=== PATIENT | male | born 1965 | race Caucasian/White ===

== ENCOUNTER 2016-12-13 08:41 | Emergency (ER) | payer SELFPAY ==
--- NOTE | ~2016-12-13 | CR126 ---
[facility] A Service of [facility] RADIOLOGY TEXT RESULTS PATIENT: CONNIE GRAVES LOCATION: SED : 63 UNIT #: [id number] AGE: [address]: Jesus Andrade MD SEX: M ORDER DR: [id number] [place] [id number] E MR#: [id number] Acc #: [id number] NAME: CONNIE GRAVES : 1965 SEX: M STUDY DATE/TIME: 12/13/2016 9:33 UNIT: SED ROOM: STUDY DESCRIPTION: CR Foot Complete Min 3 View Lt Attending Physician: Jesus Andrade M.D. Ordering Physician: Jesus Andrade M.D. Primary Care Physician: Cynthia Herrera M.D. MEDICAL IMAGING REPORT This report is preliminary unless electronic signature is present. EXAM Left foot 12/13/2016 HISTORY 51-year-old male with left foot pain status post fall last night. COMPARISON None. FINDINGS 3 views of the left foot demonstrate no acute fracture or dislocation. Joint spaces are within normal limits. Soft tissues are unremarkable. IMPRESSION Unremarkable left foot. Dictated by... James Vazquez M.D. THIS IS AN ELECTRONICALLY VERIFIED REPORT James Vazquez M.D. at 12/14/2016 6:21 AM SILVA/eris TD: 12/13/2016 10:10 JOB #: [id number] MEDICAL IMAGING REPORT Page 1 of 1
[~2016-12-13 08:41] MED LIST: AMBIEN10 MG PO; ATENOLOL PO; BACITRACIN30 GM TOP; BACTRIM DS TABL1 TA1 PO; CIPRO PO; EFFEXOR PO; ERYC250 MG PO; JANUMET; KLONOPIN0.5 M1 PO; LANTUS100 U/ML; LISINOPRIL PO; LISINOPRIL-HCTZ1 T19 PO; MOBIC PO; MOTRIN600 M1 PO; NEURONTIN PO; SUBOXONE 8 MG-1 EAC1 PO; VELTIN GEL30 GM TOP; VICODIN 5/500 T1 TAB PO; ZOCOR10 MG PO
[2016-12-13] MEDS ORDERED: METFORMIN (08:49)
[2016-12-13] MEDS ORDERED: FLOMAX0.4 M1 (08:49)
== END 2016-12-13 10:36 | disposition home or self-care (01) ==
LOC: SED 08:41
DX: S93.602A Unspecified sprain of left foot, initial encounter (principal); S90.32XA Contusion of left foot, initial encounter; F17.210 Nicotine dependence, cigarettes, uncomplicated; E78.5 Hyperlipidemia, unspecified; F41.0 Panic disorder [episodic paroxysmal anxiety]; Z90.49 Acquired absence of other specified parts of digestive tract; Z86.73 Personal history of transient ischemic attack (TIA), and cerebral infarction without residual deficits; Z79.899 Other long term (current) drug therapy; Z88.0 Allergy status to penicillin; W01.0XXA Fall on same level from slipping, tripping and stumbling without subsequent striking against object, initial encounter; Y92.009 Unspecified place in unspecified non-institutional (private) residence as the place of occurrence of the external cause
CPT/HCPCS: 73630; 99283

== ENCOUNTER 2017-01-21 12:51 | Emergency (ER) | payer SELFPAY ==
[~2017-01-21 12:51] MED LIST changes: +FLOMAX0.4 M1; +METFORMIN
[2017-01-21 14:13] LABS: URINE SOURCE CLEAN CATCH
[2017-01-21 14:32] LABS: URINE APPEARANCE CLEAR; URINE BILIRUBIN NEG (NEG); URINE BLOOD TRACE-INTACT (NEG); URINE COLOR YELLOW; URINE GLUCOSE 300 MG/DL (NORM); URINE KETONE NEG (NEG); URINE LEUKOCYTE ESTERASE NEG (NEG); URINE NITRATE NEG (NEG); URINE PH 5.5 (5-8); URINE PROTEIN NEG (NEG); URINE SPECIFIC GRAVITY 1.015 (1.003-1.035); URINE UROBILINOGEN 0.2 MG/DL (NORM)
[2017-01-21 14:35] LABS: MICRO INDICATED? YES
[2017-01-21 14:37] LABS: URINE BACTERIA NEG (NEG); URINE SQUAMOUS EPITHELIAL CELL OCCAS /[HPF]; URINE WBC 0-2 /[HPF] (0-5)
== END 2017-01-21 15:36 | disposition home or self-care (01) ==
LOC: SED 12:51
PROVIDERS: Nurse Practitioner
DX: S39.012A Strain of muscle, fascia and tendon of lower back, initial encounter (principal); Z88.1 Allergy status to other antibiotic agents; Z88.0 Allergy status to penicillin; Z79.899 Other long term (current) drug therapy; F17.210 Nicotine dependence, cigarettes, uncomplicated; X50.9XXA Other and unspecified overexertion or strenuous movements or postures, initial encounter; Y92.89 Other specified places as the place of occurrence of the external cause
CPT/HCPCS: 81003; 99283